=== PATIENT | female | born 1985 | race Caucasian/White ===

== ENCOUNTER 2022-02-16 09:59 | Emergency (ER) | payer OTHER ==
[~2022-02-16] VITALS: Ht 152.4 cm; Wt 60.3 kg
[2022-02-16] MEDS ORDERED: ACETAMINOPHEN 325 MG TAB PO ONE (11:00)
== END 2022-02-16 11:51 | disposition home or self-care (01) ==
LOC: ER 10:06
DX: S90.31XA Contusion of right foot, initial encounter (principal); Y93.67 Activity, basketball; Y92.89 Other specified places as the place of occurrence of the external cause
CPT/HCPCS: 99283